=== PATIENT | male | born 1965 | race Caucasian/White ===

== ENCOUNTER → 2017-10-08 | Emergency (ER) | payer BC ==
[~2017-10-08] VITALS: Ht 175.3 cm; Wt 72.6 kg
== END | disposition home or self-care (01) ==
LOC: ER 16:07
DX: N20.1 Calculus of ureter (principal); R10.31 Right lower quadrant pain

== ENCOUNTER 2018-10-05 05:05 | Day surgery (SDC) | payer BC ==
[2018-10-05] MEDS ORDERED: NEURONTIN300 MG PO (09:18)
[2018-10-05] MEDS ORDERED: ULTRACET PO (09:18)
[2018-10-05] MEDS ORDERED: COLACE100 MG PO (09:18)
== END 2018-10-05 11:05 | disposition home or self-care (01) ==
LOC: CIR.AMB 05:05
DX: K43.0 Incisional hernia with obstruction, without gangrene (principal)